=== PATIENT | male | born 1995 | race Caucasian/White ===

== ENCOUNTER 2021-04-13 18:25 | Emergency (ER) | payer BC ==
[~2021-04-13 18:25] MED LIST: LODINE CAP 300300 MG PO; NORFLEX 100 MG100 MG PO
[2021-04-13 20:09] LABS: HEMOGLOBIN 16.8 gm/dl (14.0-17.5); RED BLOOD COUNT 5.66 M/UL (4.20-5.50); WHITE BLOOD COUNT 7.6 K/UL (4.5-11.0)
[2021-04-13 20:16] LABS: BUN/CREATININE RATIO 12 (0-10)
[2021-04-15 10:10] LABS: HBSAG SCREEN Negative (Negative); HEP A AB, IGM Negative (Negative); HEP B CORE AB, IGM Negative (Negative); HEP C VIRUS AB <0.1 (0.0-0.9)
[2021-04-15 11:10] LABS: HIV AB/P24 AG SCREEN Non Reactive (Non Reactive)
[2021-04-16 15:12] LABS: TREPONEMA PALLIDUM ANTIBODIES Non Reactive (Non Reactive)
[2021-04-16 17:13] LABS: CHLAMYDIA TRACHOMATIS, NAA Negative (Negative); NEISSERIA GONORRHOEAE, NAA Negative (Negative)
== END 2021-04-13 21:36 | disposition home or self-care (01) ==
LOC: ER1 18:25
PROVIDERS: Emergency Medicine
DX: S30.22XA Contusion of scrotum and testes, initial encounter (principal); F17.220 Nicotine dependence, chewing tobacco, uncomplicated; W22.8XXA Striking against or struck by other objects, initial encounter
CPT/HCPCS: 76870; 80048; 80074; 81001; 85025; 86780; 87086; 87389; 99284